=== PATIENT | male | born 1965 | race Caucasian/White ===

== ENCOUNTER 2016-08-25 22:29 | Emergency (ER) | payer OTHER ==
[~2016-08-25 22:29] MED LIST: ASPIRIN325 MG PO; LIPITOR40 MG PO; NITROSTAT0.4 MG SL; ZANTAC150 MG PO
== END 2016-08-25 23:46 | disposition home or self-care (01) ==
LOC: ER 22:29
DX: J20.9 Acute bronchitis, unspecified (principal); K21.9 Gastro-esophageal reflux disease without esophagitis; F17.210 Nicotine dependence, cigarettes, uncomplicated; Z79.82 Long term (current) use of aspirin; Z79.899 Other long term (current) drug therapy
CPT/HCPCS: 36415; 96374